=== PATIENT | female | born 1955 | race Caucasian/White ===

== ENCOUNTER → 2021-04-16 | Outpatient (CLI) | payer MEDICARE ==
[2021-04-16 13:51] VITALS: BP 110/68; PULSE 78; RESP 18; TEMP 98; BMI 39.4
--- NOTE | 2021-04-16 14:57 | P.HPBAR ---
Bariatric H&P - History & Physicial H&P Date: 04/16/21 History & Physicial: Visit/CC: lap band follow up Patient initial contact: Initial weight: Initial weight in pounds: Height: 5 ft 3 in Initial BMI: Last weight: Current weight: 101.015 kg Current weight in pounds: 222.70 Current BMI: 39.4 [place] body weight (based on NIH guidelines): 52.163 kg Excess body weight loss: The patient is a 65 year-old F who presents for Bariatric Assessment. Patient has complaints of dysphagia. She's requesting her fluid to be removed. Past Medical History Past Medical History: Hypertension, Thyroid Disorder Additional Past Medical History / Comment(s): menigermildred. History of Any Multi-Drug Resistant Organisms: MRSA Year Discovered:: 2014? MDRO Source:: nose Past Surgical History: Bariatric Surgery, Joint Replacement Additional Past Surgical History / Comment(s): bilat TKR. Lap Band 2009/2010. Past Anesthesia/Blood Transfusion Reactions: No Reported Reaction Past Psychological History: No Psychological Hx Reported Smoking Status: Never smoker Past Alcohol Use History: Rare Past Drug Use History: None Reported Surgical - Exam Vital Signs Temp Pulse Resp BP 98 F 78 18 110/68 04/16/21 13:44 04/16/21 13:44 04/16/21 13:44 04/16/21 13:44 - General well developed, well nourished, no distress - Eyes PERRL - ENT normal pinna - Neck no masses - Respiratory normal expansion - Cardiovascular Rhythm: regular - Abdomen Abdomen: soft, non tender Bariatric Assessment & Plan Plan: Stage. Patient had 5 mL her LAP-BAND. She currently is 0 band. She'll follow- up in 4 weeks. Bariatric Checklist Checklist: Plan: Checklist: EGD: 1. Hiatal hernia: 2. H. Pylori: HgbA1c: Vitamin D: Smoking: Primary care physician referral: Dr. Dixon Draper ([place], [place]) Psychiatry clearance: Cardiology clearance: Sleep study: Diet journal: VTE risk score: VTE risk level: Rehab needs at discharge:
== END ==
LOC: BARWHC3 13:28
PROVIDERS: ATTEND Surgery
DX: Z09 Encounter for follow-up examination after completed treatment for conditions other than malignant neoplasm (principal); R13.10 Dysphagia, unspecified; I10 Essential (primary) hypertension; Z98.84 Bariatric surgery status
CPT/HCPCS: 99202